=== PATIENT | male | born 1980 | race Caucasian/White ===

== ENCOUNTER 2019-10-06 18:17 | Emergency (ER) | payer OTHER ==
[~2019-10-06] VITALS: Ht 162.6 cm; Wt 117.9 kg
[2019-10-06 18:24] VITALS: BP 139/63
--- NOTE | 2019-10-06 18:30 | NUR ---
SX GALLBLADDER REMOVAL 2008
--- NOTE | 2019-10-06 18:30 | NUR ---
39 Y/O M C/C UPPER ABDOMINAL PAIN RADIATING TO THE BACK X 2 WEEKS. PER PT HAS BEEN GETTING PROGRESSIVELY WORSE. PAIN 6/10, SORENESS/SHARP SENSATION, REST ALLEVIATES, ACTIVITY EXACERBATES. PT DENIES DYSURIA, OR IRREGULAR BM. BS NORMOACTIVE. NKA. HX HTN,GERD. RX LISINOPRIL,OMEPRAZOLE. NO NVD. SIDE RAIL X1.
--- NOTE | 2019-10-06 19:10 | NUR ---
ERMD LESTER AT BEDSIDE EVALUATING PT.
--- NOTE | 2019-10-06 19:11 | NUR ---
REPORT GIVEN TO ROSE RIZO FOR CONTINUITY OF CARE
[2019-10-06] MEDS ORDERED: DICYCLOMINE HCL LIQUID 20 MG, ALUMINUM HYD/MAG/SIMETHICONE 30 ML, LIDOCAINE VISCOUS 2% ... PO ONE ×3 (19:40)
[2019-10-06] MEDS ORDERED: LIDOCAINE VISCOUS 2% 20 ML UDC ONE (19:47)
[2019-10-06] MEDS ORDERED: ALUMINUM HYD/MAG/SIMETHICONE 30 ML UDC ONE (19:47)
[2019-10-06] MEDS ORDERED: DICYCLOMINE HCL LIQUID 10 MG/5 ML UDC ONE (19:47)
--- NOTE | 2019-10-06 19:50 | NUR ---
PT MEDICATED WITH GI COCKTAIL. TOLERATED WELL. NADR
[2019-10-06 20:29] LABS: BASOPHILS # (AUTO) 0.1 K/uL (0.00-0.22); BASOPHILS % (AUTO) 0.9 % (0.0-2.0); EOSINOPHILS # (AUTO) 0.3 K/uL (0-0.4); EOSINOPHILS % (AUTO) 3.8 % (0.0-4.0); HEMOGLOBIN 14.6 g/dL (12.0-18.0); LYMPHOCYTES # (AUTO) 2.2 K/uL (2.0-11.5); LYMPHOCYTES % (AUTO) 31.6 % (20.5-51.1); MEAN CORPUSCULAR HEMOGLOBIN 28 pg (27-31); MEAN CORPUSCULAR HGB CONC 33 g/dL (33-37); MEAN CORPUSCULAR VOLUME 85.2 fL (80-94); MONOCYTES # (AUTO) 1.1 K/uL (0.8-1.0); MONOCYTES % (AUTO) 15.3 % (1.7-9.3); NEUTROPHILS # (AUTO) 3.4 K/uL (1.8-7.7); NEUTROPHILS % (AUTO) 48.4 % (42.2-75.2); PLATELET COUNT (AUTO) 211 K/uL (140-450); RED BLOOD CELL COUNT(AUTO) 5.16 MIL/uL (4.20-6.10); RED CELL DISTRIBUTION WIDTH 14.1 % (11.6-13.7); WHITE BLOOD COUNT (AUTO) 7.1 K/uL (4.8-10.8)
--- NOTE | 2019-10-06 20:52 | NUR ---
PT SIGNED CONSENT
[2019-10-06 20:53] LABS: ALBUMIN 3.9 g/dL (3.4-5.0); AMYLASE 69 U/L (25-115); ANION GAP 11.8 (8-16); ASPARTATE AMINOTRANSFERASE 145 U/L (15-37); CARBON DIOXIDE 27.9 mmol/L (21-32); CHLORIDE 103 mmol/L (98-107); CREATININE 1.2 mg/dL (0.6-1.3); GFR ARICAN-AMERICAN 87 mL/min (>90); GLUCOSE 106 mg/dL (74-106); LIPASE 263 U/L (73-393); POTASSIUM 3.7 mmol/L (3.5-5.1); SODIUM SERUM 139 mmol/L (136-145); TOTAL BILIRUBIN 0.4 mg/dL (0.0-1.0); UREA NITROGEN, BLOOD 10 mg/dL (7-18)
--- NOTE | 2019-10-06 20:56 | NUR ---
PT TAKEN TO CT VIA W/C.
--- NOTE | 2019-10-06 21:58 | NUR ---
PT AMBULATED TO RESTROOM WITH STEADY GAIT
--- NOTE | 2019-10-06 22:44 | NUR ---
Patient discharged with v/s stable. Written and verbal after care instructions given and explained. Patient verbalized understanding. Ambulatory with steady gait. All questions addressed prior to discharge. Advised to follow up with PMD.
[2019-10-07 00:10] LABS: APPEARANCE,URINE CLEAR (CLEAR); BILIRUBIN,URINE NEGATIVE (NEGATIVE); BLOOD, URINE TRACE-I (NEGATIVE); COLOR,URINE YELLOW (YELLOW); LEUKOCYTE ESTERASE ,URINE NEGATIVE (NEGATIVE); NITRITE, URINE NEGATIVE (NEGATIVE); UGLUCOSE NEGATIVE (NEGATIVE)
[2019-10-07 00:27] LABS: RBC,URINE 0-5 /HPF (0-5); WBC,URINE 0-5 /HPF (0-5)
== END 2019-10-06 22:45 | disposition home or self-care (01) ==
LOC: MED 18:17
DX: R10.31 Right lower quadrant pain (principal); F10.99 Alcohol use, unspecified with unspecified alcohol-induced disorder; I10 Essential (primary) hypertension; K21.9 Gastro-esophageal reflux disease without esophagitis; K76.9 Liver disease, unspecified; Z90.49 Acquired absence of other specified parts of digestive tract
CPT/HCPCS: 36415; 74177; 80053; 81001; 82150; 83690; 85025; 99285; G0482; Q9967

== ENCOUNTER 2019-11-13 01:50 | Emergency (ER) | payer OTHER ==
[~2019-11-13] VITALS: Ht 170.2 cm; Wt 113.4 kg
[2019-11-13 01:59] VITALS: BP 150/80
[2019-11-13] MEDS ORDERED: HYDROcodone/APAP 5/325 MG 1 TAB TAB PO ONE (02:40)
[2019-11-13 02:58] VITALS: BP 150/80
== END 2019-11-13 02:59 | disposition home or self-care (01) ==
LOC: MED 01:50
DX: S61.452A Open bite of left hand, initial encounter (principal); K21.9 Gastro-esophageal reflux disease without esophagitis; I10 Essential (primary) hypertension; W54.0XXA Bitten by dog, initial encounter; Y93.89 Activity, other specified; Y92.89 Other specified places as the place of occurrence of the external cause; Y99.8 Other external cause status
CPT/HCPCS: 99283

== ENCOUNTER 2020-05-13 07:52 | Emergency (ER) | payer OTHER ==
[~2020-05-13] VITALS: Ht 170.2 cm; Wt 120.7 kg
[2020-05-13 07:57] VITALS: BP 150/98
[2020-05-13] MEDS ORDERED: FAMOTIDINE 20 MG TAB PO ONE (08:15)
[2020-05-13] MEDS ORDERED: KETOROLAC 60 MG/2 ML VIAL IM ONE (08:15)
[2020-05-13 08:31] LABS: BASOPHILS # (AUTO) 0.1 K/uL (0.00-0.22); BASOPHILS % (AUTO) 0.9 % (0.0-2.0); EOSINOPHILS # (AUTO) 0.7 K/uL (0-0.4); EOSINOPHILS % (AUTO) 7.3 % (0.0-4.0); HEMATOCRIT 45.3 % (36-52); HEMOGLOBIN 15.2 g/dL (12.0-18.0); LYMPHOCYTES # (AUTO) 2.7 K/uL (2.0-11.5); LYMPHOCYTES % (AUTO) 28.9 % (20.5-51.1); MEAN CORPUSCULAR HEMOGLOBIN 28 pg (27-31); MEAN CORPUSCULAR HGB CONC 33 g/dL (33-37); MEAN CORPUSCULAR VOLUME 83.3 fL (80-94); MONOCYTES # (AUTO) 0.9 K/uL (0.8-1.0); MONOCYTES % (AUTO) 9.4 % (1.7-9.3); NEUTROPHILS # (AUTO) 4.9 K/uL (1.8-7.7); NEUTROPHILS % (AUTO) 53.5 % (42.2-75.2); PLATELET COUNT (AUTO) 244 K/uL (140-450); RED BLOOD CELL COUNT(AUTO) 5.44 MIL/uL (4.20-6.10); RED CELL DISTRIBUTION WIDTH 14.7 % (11.6-13.7); WHITE BLOOD COUNT (AUTO) 9.2 K/uL (4.8-10.8)
[2020-05-13 08:59] LABS: ALBUMIN 3.7 g/dL (3.4-5.0); ANION GAP 11.2 (8-16); CARBON DIOXIDE 29.5 mmol/L (21-32); CREATININE 1.2 mg/dL (0.6-1.3); POTASSIUM 4.7 mmol/L (3.5-5.1); TOTAL BILIRUBIN 0.5 mg/dL (0.0-1.0)
[2020-05-13 09:32] VITALS: BP 147/85
== END 2020-05-13 09:31 | disposition home or self-care (01) ==
LOC: MED 07:52
DX: R10.11 Right upper quadrant pain (principal); F10.129 Alcohol abuse with intoxication, unspecified; R19.7 Diarrhea, unspecified; I10 Essential (primary) hypertension; K21.9 Gastro-esophageal reflux disease without esophagitis; Y90.9 Presence of alcohol in blood, level not specified
CPT/HCPCS: 36415; 80053; 83690; 84484; 85025; 96372; 99284; J1885; 93005

== ENCOUNTER 2020-09-30 13:21 | Emergency (ER) | payer OTHER ==
[~2020-09-30] VITALS: Ht 170.2 cm; Wt 124.7 kg
[2020-09-30 13:23] VITALS: BP 160/116
--- NOTE | 2020-09-30 13:26 | NUR ---
Karina kirby in ED - 09/30/20 at 1330 by MMTHEM Patient transferred to bed 9 via wheelchair by tech. RIZO evaluating the patient at bedside.
--- NOTE | 2020-09-30 13:28 | NUR ---
PT AMBULATORY TO BED #7 Addendum: 09/30/20 at 1330 by MEDGJ AMBULAOTRY TO BED #2
--- NOTE | 2020-09-30 13:39 | NUR ---
40 Y/O MALE C/O CONGESTION, SOB, CHEST PAIN SINCE WEDNESDAY. WITH RUNNY NOSE AND COUGH, PT STATES 7/10 PRESSURE PAIN RADIATING TO LOWER BACK. DENIES ANY RECENT FEVER.. MEDHX: HTN NKA
--- NOTE | 2020-09-30 14:00 | NUR ---
JESI SWAB COLLECTED AND SENT TO LAB
--- NOTE | 2020-09-30 14:08 | NUR ---
DR TAYLOR AT BEDSIDE EXAMINING PT
[2020-09-30] MEDS ORDERED: ALBUTEROL SULFATE/IPRATROPIU 3 ML SOL IH ONE (14:10)
--- NOTE | 2020-09-30 14:17 | NUR ---
robotics technologist at bedside.
--- NOTE | 2020-09-30 14:28 | NUR ---
[facility] THERAPY AND RES[IRATORY DRUG GIVEN ORDERED ENCOURAGED PATIENT FOR INTERMITTENT DEEP BREATH DRING THERAPY
[2020-09-30] MEDS ORDERED: PRED20TA5 PO (15:03)
[2020-09-30] MEDS ORDERED: BENA20TA PO (15:03)
[2020-09-30] MEDS ORDERED: ALBU0.0912 IH (15:03)
[2020-09-30 15:17] VITALS: BP 160/116
--- NOTE | 2020-09-30 15:17 | NUR ---
Patient discharged with v/s stable. Written and verbal after care instructions given and explained. Patient alert, oriented and verbalized understanding of instructions. Ambulatory with steady gait. All questions addressed prior to discharge. ID band removed. Patient advised to follow up with PMD. Rx of PROVENTIL, LOTENSIN, AND DELTASONE given. Patient educated on indication of medication including possible reaction and side effects. Opportunity to ask questions provided and answered.
== END 2020-09-30 15:17 | disposition home or self-care (01) ==
LOC: MED 13:21
DX: J20.9 Acute bronchitis, unspecified (principal); Z20.822 Contact with and (suspected) exposure to COVID-19; K21.9 Gastro-esophageal reflux disease without esophagitis; I10 Essential (primary) hypertension; F17.210 Nicotine dependence, cigarettes, uncomplicated; Z79.899 Other long term (current) drug therapy; Z76.0 Encounter for issue of repeat prescription
CPT/HCPCS: 71045; 93005; 94640; 99285

== ENCOUNTER 2020-10-30 17:59 | Emergency (ER) | payer OTHER ==
[~2020-10-30] VITALS: Ht 170.2 cm; Wt 126.6 kg
[~2020-10-30 17:59] MED LIST: ALBU0.0912 IH; BENA20TA PO; PRED20TA5 PO
[2020-10-30 18:05] VITALS: BP 149/98
--- NOTE | 2020-10-30 18:08 | NUR ---
to lobby a/w bed ambulatory
[2020-10-30] MEDS ORDERED: LIDOCAINE/EPI 1% 1:100000 20 ML VIAL INJ ONE (19:15)
--- NOTE | 2020-10-30 19:15 | NUR ---
REPORT RECEIVED FROM SALLIE RAO FOR CONTINUITY OF CARE.
--- NOTE | 2020-10-30 19:19 | NUR ---
SEE COMPLETE ASSESSMENT FOR FURTHER DETAILS.
[2020-10-30] MEDS ORDERED: CEPH-588 PO (19:59)
== END 2020-10-30 20:24 | disposition home or self-care (01) ==
LOC: MED 17:59
DX: L02.416 Cutaneous abscess of left lower limb (principal); K21.9 Gastro-esophageal reflux disease without esophagitis; I10 Essential (primary) hypertension; Z79.899 Other long term (current) drug therapy
CPT/HCPCS: 10060; 99284; J2001

== ENCOUNTER 2020-11-25 06:59 | Emergency (ER) | payer OTHER ==
[~2020-11-25] VITALS: Ht 170.2 cm; Wt 122.5 kg
[~2020-11-25 06:59] MED LIST changes: +CEPH-588 PO
[2020-11-25] MEDS ORDERED: ASPIRIN 81 MG TAB.CHEW PO ONE (07:20)
[2020-11-25] MEDS ORDERED: KETOROLAC 60 MG/2 ML VIAL IM ONE (07:20)
[2020-11-25 07:25] VITALS: BP 147/120
--- NOTE | 2020-11-25 07:45 | NUR ---
BIB SELF C/O CP X AT 6 AM TODAY. COUGH X 3 WEEKS. PMH: HTN.DENIES N/V/D; SKIN IS PINK/WARM/DRY; AAOX4 WITH EVEN AND STEADY GAIT; LUNGS CLEAR BL; HR EVEN AND REGULAR; PT DENIES ANY FEVER, CP, SOB, OR COUGH AT THIS TIME; PATIENT STATES PAIN OF 8/10 AT THIS TIME.
[2020-11-25 08:21] LABS: BASOPHILS # (AUTO) 0.1 K/uL (0.00-0.22); BASOPHILS % (AUTO) 1.1 % (0.0-2.0); EOSINOPHILS # (AUTO) 0.8 K/uL (0-0.4); EOSINOPHILS % (AUTO) 8.4 % (0.0-4.0); HEMATOCRIT 48.4 % (36-52); HEMOGLOBIN 15.9 g/dL (12.0-18.0); LYMPHOCYTES # (AUTO) 3.1 K/uL (2.0-11.5); LYMPHOCYTES % (AUTO) 30.4 % (20.5-51.1); MEAN CORPUSCULAR HEMOGLOBIN 28 pg (27-31); MEAN CORPUSCULAR HGB CONC 33 g/dL (33-37); MEAN CORPUSCULAR VOLUME 85.2 fL (80-94); MONOCYTES # (AUTO) 0.7 K/uL (0.8-1.0); MONOCYTES % (AUTO) 7.3 % (1.7-9.3); NEUTROPHILS # (AUTO) 5.3 K/uL (1.8-7.7); NEUTROPHILS % (AUTO) 52.8 % (42.2-75.2); PLATELET COUNT (AUTO) 274 K/uL (140-450); RED BLOOD CELL COUNT(AUTO) 5.68 MIL/uL (4.20-6.10); RED CELL DISTRIBUTION WIDTH 16.1 % (11.6-13.7); WHITE BLOOD COUNT (AUTO) 10.1 K/uL (4.8-10.8)
[2020-11-25 08:32] LABS: ANION GAP 11.8 (8-16); CARBON DIOXIDE 27.2 mmol/L (21-32)
[2020-11-25] MEDS ORDERED: AZIT250T4 PO (09:03)
[2020-11-25] MEDS ORDERED: PRED20TA5 PO (09:03)
[2020-11-25] MEDS ORDERED: ALBU0.0912 IH (09:03)
[2020-11-25 09:17] VITALS: BP 147/120
--- NOTE | 2020-11-25 09:17 | NUR ---
Patient discharged with v/s stable. Written and verbal after care instructions given and explained. Patient alert, oriented and verbalized understanding of instructions. Ambulatory with steady gait. All questions addressed prior to discharge. ID band removed. Patient advised to follow up with PMD. Rx of Albuterol sulfate, azithromycin, and prednisone was given. Patient educated on indication of medication including possible reaction and side effects. Opportunity to ask questions provided and answered.
== END 2020-11-25 09:17 | disposition home or self-care (01) ==
LOC: MED 06:59
DX: R07.89 Other chest pain (principal); J40 Bronchitis, not specified as acute or chronic; K21.9 Gastro-esophageal reflux disease without esophagitis; I10 Essential (primary) hypertension; Z79.899 Other long term (current) drug therapy
CPT/HCPCS: 36415; 71045; 80048; 84484; 85025; 93005; 96372; 99285; J1885

== ENCOUNTER 2021-03-30 23:40 | Emergency (ER) | payer OTHER ==
[~2021-03-30] VITALS: Ht 170.2 cm; Wt 122.5 kg
[~2021-03-30 23:40] MED LIST changes: +AZIT250T4 PO
[2021-03-31 00:04] VITALS: BP 147/97
--- NOTE | 2021-03-31 00:07 | NUR ---
TO LOBBY A/W BED AMBULATORY
--- NOTE | 2021-03-31 00:20 | NUR ---
PT TAKEN TO XRAY FROM [facility]
--- NOTE | 2021-03-31 00:31 | NUR ---
PT TAKEN TO BED 8 FROM RADIOLOGY
--- NOTE | 2021-03-31 00:39 | NUR ---
Karina kirby in [facility] - 03/31/21 at [address] Reagan examining patient.
--- NOTE | 2021-03-31 01:11 | NUR ---
Patient appears to be resting comfortably in bed- Low fowlers with eyes closed. Vital Signs within normal limits. Respirations even and unlabored. No signs of distress noted. Will continue to monitor patient.
--- NOTE | 2021-03-31 01:21 | NUR ---
Dr. Reagan examining patient.
[2021-03-31] MEDS ORDERED: KETOROLAC 60 MG/2 ML VIAL IM ONE (01:25)
[2021-03-31] MEDS ORDERED: ACET-8386 PO (01:34)
[2021-03-31] MEDS ORDERED: IBUP-2213 PO (01:34)
== END 2021-03-31 01:37 | disposition home or self-care (01) ==
LOC: MED 23:40
DX: S90.31XA Contusion of right foot, initial encounter (principal); K21.9 Gastro-esophageal reflux disease without esophagitis; I10 Essential (primary) hypertension; F17.210 Nicotine dependence, cigarettes, uncomplicated; Z79.2 Long term (current) use of antibiotics; Z79.51 Long term (current) use of inhaled steroids; Z79.899 Other long term (current) drug therapy; W22.01XA Walked into wall, initial encounter; Y92.89 Other specified places as the place of occurrence of the external cause; Y93.89 Activity, other specified; Y99.8 Other external cause status
CPT/HCPCS: 73630; 96372; 99283; J1885

== ENCOUNTER 2021-05-29 10:30 | Emergency (ER) | payer OTHER ==
[~2021-05-29] VITALS: Ht 170.2 cm; Wt 122.5 kg
[~2021-05-29 10:30] MED LIST changes: +ACET-8386 PO; +IBUP-2213 PO
[2021-05-29 10:32] VITALS: BP 152/108
--- NOTE | 2021-05-29 10:49 | NUR ---
DR COPE AT BEDSIDE.
--- NOTE | 2021-05-29 10:50 | NUR ---
DR. COPE BEDSIDE EVALUATING PT
[2021-05-29] MEDS ORDERED: NACL 0.9% 1,000 ML IV ONE (10:55)
[2021-05-29] MEDS ORDERED: LORazepam 2 MG/ML VIAL IVP ONE (10:55)
--- NOTE | 2021-05-29 11:01 | NUR ---
18G IV ESTABLISHED IN L AC AND BLOODWORK COLLECTED. BLOOD WALKED OVER TO LAB
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
--- NOTE | 2021-05-29 11:09 | NUR ---
XRAY AT PATIENT BEDSIDE
--- NOTE | 2021-05-29 12:12 | NUR ---
URINE COLLECTED AND WALKED OVER TO LAB
[2021-05-29 12:17] LABS: ALBUMIN 3.8 g/dL (3.4-5.0); CARBON DIOXIDE 22.6 mmol/L (21-32); CREATININE 0.9 mg/dL (0.6-1.3); POTASSIUM 3.6 mmol/L (3.5-5.1); TOTAL BILIRUBIN 0.6 mg/dL (0.0-1.0)
--- NOTE | 2021-05-29 12:22 | NUR ---
PATIENT CURRENTLY RESTING IN BED ON PHONE AT THIS TIME. NAD. VITAL SIGNS TAKEN AND CHARTED. WILL CONTINUE TO MONITOR
[2021-05-29 12:27] LABS: BASOPHILS # (AUTO) 0.1 K/uL (0.00-0.22); BASOPHILS % (AUTO) 0.9 % (0.0-2.0); EOSINOPHILS % (AUTO) 0.2 % (0.0-4.0); HEMATOCRIT 46.2 % (36-52); HEMOGLOBIN 15.3 g/dL (12.0-18.0); LYMPHOCYTES # (AUTO) 2.8 K/uL (2.0-11.5); LYMPHOCYTES % (AUTO) 23.2 % (20.5-51.1); MEAN CORPUSCULAR HEMOGLOBIN 27 pg (27-31); MEAN CORPUSCULAR HGB CONC 33 g/dL (33-37); MEAN CORPUSCULAR VOLUME 81.7 fL (80-94); NEUTROPHILS # (AUTO) 8.2 K/uL (1.8-7.7); NEUTROPHILS % (AUTO) 67.7 % (42.2-75.2); PLATELET COUNT (AUTO) 263 K/uL (140-450); RED BLOOD CELL COUNT(AUTO) 5.66 MIL/uL (4.20-6.10); RED CELL DISTRIBUTION WIDTH 15.7 % (11.6-13.7); WHITE BLOOD COUNT (AUTO) 12.1 K/uL (4.8-10.8)
[2021-05-29 12:39] LABS: PROTHROMBIN TIME 10.4 secs (10.8-13.4)
[2021-05-29 13:46] LABS: BARBITURATE, URINE NEGATIVE ng/ml (NEG <=200)
[2021-05-29 13:47] LABS: BENZODIAZEPINE, URINE NEGATIVE ng/mL (NEG <=200); CANNABINOID, URINE NEGATIVE ng/mL (NEG <=50); COCAINE, URINE NEGATIVE ng/mL (NEG <=300); PHENCYCLIDINE SCREEN,URINE NEGATIVE ng/mL (NEG <=25)
[2021-05-29 13:48] LABS: OPIATE, URINE NEGATIVE ng/mL (NEG <=2000)
[2021-05-29] MEDS ORDERED: LORA-476 PO (14:01)
[2021-05-29 14:12] VITALS: BP 179/104
--- NOTE | 2021-05-29 14:13 | NUR ---
Patient discharged with v/s stable. Written and verbal after care instructions given and explained. Patient alert, oriented and verbalized understanding of instructions. Ambulatory with steady gait. All questions addressed prior to discharge. ID band removed. Patient advised to follow up with PMD. Rx of LORAZEPAM given. Opportunity to ask questions provided and answered.
--- NOTE | 2021-05-29 14:17 | NUR ---
The patient's care was reviewed and supervised by Danielle Moya RN.
== END 2021-05-29 14:12 | disposition home or self-care (01) ==
LOC: MED 10:30
DX: F15.90 Other stimulant use, unspecified, uncomplicated (principal); F41.9 Anxiety disorder, unspecified; K21.9 Gastro-esophageal reflux disease without esophagitis; I10 Essential (primary) hypertension; Z79.899 Other long term (current) drug therapy
CPT/HCPCS: 36415; 71045; 80053; 80305; 83880; 84484; 85025; 85610; 85730; 96361; 96374; 99284; J2060; J7030

== ENCOUNTER 2021-09-16 05:03 | Emergency (ER) | payer OTHER ==
[~2021-09-16] VITALS: Ht 170.2 cm; Wt 117.9 kg
[~2021-09-16 05:03] MED LIST changes: +LORA-476 PO
[2021-09-16 05:06] VITALS: BP 172/121
--- NOTE | 2021-09-16 05:10 | NUR ---
TO BED 8 FROM TRIAGE
--- NOTE | 2021-09-16 05:23 | NUR ---
C/O CHEST PAIN , MID CHEST PAIN 6/10 AND TOP OF HEAD , HEADACHE PAIN 5/10, PAIN STARTED 0300. PAIN FEELS SHARP. PT TOOK NO MEDS. DENIES N/V/D; SKIN IS PINK/WARM/DRY; AAOX4 WITH EVEN AND STEADY GAIT; LUNGS CLEAR BL; HR EVEN AND REGULAR; PT DENIES ANY FEVER, CP, SOB, OR COUGH AT THIS TIME; PMH: HTN RX: POSSIBLE LISINOPRIL , NOT COMPLIANT ALLERGIES.
[2021-09-16] MEDS ORDERED: ENALAPRILAT 2.5 MG/2 ML VIAL IVP ONE (05:45)
[2021-09-16] MEDS ORDERED: hydrALAZINE 20 MG/ML VIAL IVP ONE (05:45)
[2021-09-16 06:35] LABS: BASOPHILS # (AUTO) 0.1 K/uL (0.00-0.22); EOSINOPHILS # (AUTO) 0.1 K/uL (0-0.4); EOSINOPHILS % (AUTO) 0.5 % (0.0-4.0); HEMATOCRIT 48.5 % (36-52); HEMOGLOBIN 16.7 g/dL (12.0-18.0); LYMPHOCYTES # (AUTO) 2.4 K/uL (2.0-11.5); LYMPHOCYTES % (AUTO) 22.2 % (20.5-51.1); MEAN CORPUSCULAR HEMOGLOBIN 29 pg (27-31); MEAN CORPUSCULAR HGB CONC 34 g/dL (33-37); MEAN CORPUSCULAR VOLUME 83.4 fL (80-94); MONOCYTES # (AUTO) 0.9 K/uL (0.8-1.0); MONOCYTES % (AUTO) 8.6 % (1.7-9.3); NEUTROPHILS # (AUTO) 7.4 K/uL (1.8-7.7); NEUTROPHILS % (AUTO) 67.7 % (42.2-75.2); PLATELET COUNT (AUTO) 259 K/uL (140-450); RED BLOOD CELL COUNT(AUTO) 5.82 MIL/uL (4.20-6.10); RED CELL DISTRIBUTION WIDTH 15.1 % (11.6-13.7)
[2021-09-16] MEDS ORDERED: HYDR-2853 PO (06:42)
[2021-09-16] MEDS ORDERED: AMLO2.5T PO (06:42)
[2021-09-16 06:57] LABS: ALBUMIN 3.9 g/dL (3.4-5.0); ANION GAP 15.7 (8-16); CARBON DIOXIDE 24.2 mmol/L (21-32); POTASSIUM 3.9 mmol/L (3.5-5.1); TOTAL BILIRUBIN 0.5 mg/dL (0.0-1.0)
[2021-09-16] MEDS ORDERED: METOPROLOL 5 MG/5 ML VIAL IVP ONE (07:15)
--- NOTE | 2021-09-16 07:18 | NUR ---
Pt report given to WESLEY CHILD. Transfer of care at this time.
[2021-09-16] MEDS ORDERED: METOPROLOL 5 MG/5 ML VIAL ONE (07:21)
[2021-09-16 07:54] VITALS: BP 146/96
--- NOTE | 2021-09-16 07:57 | NUR ---
Patient discharged with v/s stable. Written and verbal after care instructions given and explained. Patient alert, oriented and verbalized understanding of instructions. Ambulatory with steady gait. All questions addressed prior to discharge. ID band removed. Patient advised to follow up with PMD. Rx of AMLODIPINE BESYLATE, LISINOPRIL/HYDROCHLORITIAZIDE given. Opportunity to ask questions provided and answered.
== END 2021-09-16 07:57 | disposition home or self-care (01) ==
LOC: MED 05:03
DX: R07.2 Precordial pain (principal); I10 Essential (primary) hypertension; K21.9 Gastro-esophageal reflux disease without esophagitis; Z79.899 Other long term (current) drug therapy
CPT/HCPCS: 36415; 71045; 80053; 83880; 84484; 85025; 93005; 96374; 96375; 99285; J0360; J3490

== ENCOUNTER 2021-10-14 03:20 | Emergency (ER) | payer OTHER ==
[~2021-10-14] VITALS: Ht 170.2 cm; Wt 113.4 kg
[~2021-10-14 03:20] MED LIST changes: +AMLO2.5T PO; +HYDR-2853 PO
[2021-10-14 03:51] VITALS: BP 153/103
--- NOTE | 2021-10-14 05:24 | NUR ---
called patient and stated left to go home. LWBS
--- NOTE | 2021-10-14 05:25 | NUR ---
PATIENT LEFT WITHOUT BEING SEEN BY DR. Kimball. NO FURTHER CARE PROVIDED FOR PATIENT.
== END 2021-10-14 05:24 | disposition left against medical advice (07) ==
LOC: MED 03:20
DX: M54.50 Low back pain, unspecified (principal); Z53.21 Procedure and treatment not carried out due to patient leaving prior to being seen by health care provider

== ENCOUNTER 2023-12-10 08:01 | Day surgery (SDC) | payer OTHER ==
[~2023-12-10] VITALS: Ht 170.2 cm; Wt 75.3 kg
[~2023-12-10 08:01] MED LIST changes: -ACET-8386 PO; +ACET-8905 PO
[2023-12-10] MEDS ORDERED: LIDOCAINE 2% 100 MG/5 ML UJET TP ONE (09:39)
[2023-12-10] MEDS ORDERED: fentaNYL citrate 0.05 MG/ML VIAL ONE (09:39)
[2023-12-10] MEDS ORDERED: KETOROLAC 30 MG/ML VIAL ONE (09:55)
[2023-12-10] MEDS: KETOROLAC 30 MG/ML VIAL IVP ONE (09:57)
== END 2023-12-10 10:40 | disposition home or self-care (01) ==
LOC: MOR 08:01 → MMU 08:04 → MOR 10:40
PROVIDERS: ATTEND Internal Medicine Gastroenterology
DX: K62.5 Hemorrhage of anus and rectum (principal); K64.4 Residual hemorrhoidal skin tags; I10 Essential (primary) hypertension
CPT/HCPCS: 45330; J1885; J3010